=== PATIENT | female | born 1945 | race Hispanic/Latino ===

== ENCOUNTER 2016-08-06 10:56 | Emergency (ER) | payer MEDICARE ==
[~2016-08-06] VITALS: Ht 160 cm; Wt 78.4 kg
[2016-08-06 10:58] VITALS: BP 157/87; PULSE 77; RESP 18; O2SAT 98
[2016-08-06] MEDS ORDERED: 0.9% Sodium Chloride 1,000 ML IV ONE (11:19)
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
[2016-08-06] MEDS ORDERED: Acetaminophen IV 1,000 MG in IV Premix 1 EACH IV ONE (11:35)
[2016-08-06] MEDS: Ondansetron 2 mg/mL 2 mL Inj IVPUSH PRN ×2 (11:38→13:49)
[2016-08-06 11:49] LABS: BASOPHILS % (AUTO) 0.2 % (0-3); EOSINOPHILS % (AUTO) 0.3 % (0-5); MONOCYTES % (AUTO) 3.6 % (4-12); Mean Corpuscular Hemoglobin 28.7 pg (27.0-35.0); NEUTROPHILS % (AUTO) 84.7 % (40-74); Platelet Count 279 bil/L (150-400)
[2016-08-06] MEDS ORDERED: CHOL10008 PO (11:49)
[2016-08-06] MEDS ORDERED: ASPI-973 PO (11:49)
[2016-08-06] MEDS ORDERED: IBUP400T22 PO (11:49)
[2016-08-06] MEDS ORDERED: HYDR25TA4 PO (11:49)
[2016-08-06] MEDS ORDERED: LISI40TA PO (11:49)
[2016-08-06] MEDS ORDERED: SIMV20TA4 PO (11:49)
[2016-08-06 11:50] VITALS: PULSE 77; RESP 16; O2SAT 97
[2016-08-06 12:19] LABS: APPEARANCE,URINE CLEAR (CLEAR,HAZY); COLOR,URINE STRAW (YELLOW); OCCULT BLOOD,URINE MODERATE (NEGATIVE); PH,URINE 5.5 (5.0-8.0); UROBILINOGEN,URINE NORMAL (NORMAL)
[2016-08-06 13:31] VITALS: BP 137/66; PULSE 75; RESP 16; O2SAT 97
--- NOTE | 2016-08-06 13:40 | DRSVH ---
PROCEDURE: CT ABDOMEN AND PELVIS WITH CONTRAST ([id number]) INDICATIONS: abd pain TECHNIQUE: After the administration of intravenous contrast, 5 mm thick sections acquired from the diaphragm to the symphysis. 5 mm coronal and sagittal reformats were acquired. For radiation dose reduction, the following was used: automated exposure control, adjustment of mA and/or kV according to patient siz e. COMPARISON: None. FINDINGS: Image quality: Excellent. ABDOMEN: Lung bases: There is mild basilar atelectasis. No pleural effusion or pneumothorax. Solid organs: The liver is diffusely hypodense suggesting hepatic steatosis. The spleen demonstrates normal size and enhancement. Gallbladder is moderately distended. No gallbladder wall thickening or pericholecystic fluid.. Biliary system is non dilated. Pancreas enhances normally. No adrenal nodu les. Kidneys demonstrate normal size and enhancement, without hydronephrosis. There is a right lowe r pole low-density renal cyst. Peritoneum and bowel: Bowel loops demonstrate normal wall thickness and caliber. The appendix is th in walled and gas filled. There are scattered sigmoid diverticula. No evidence for diverticulitis. No free fluid or air. Nodes and vessels: No retroperitoneal or mesenteric adenopathy by size criteria. Aorta and inferior vena cava are normal in size. There are scattered atheromatous calcifications throughout the aorta a nd iliac arteries bilaterally. Miscellaneous: No ventral hernias. PELVIS: Genitourinary: Bladder wall thickness is normal. Miscellaneous: No inguinal hernias or adenopathy. Bones: No suspicious bony lesions. There is grade II L5 on S1 anterolisthesis. There are bilateral L5-S1 pars interarticularis defects. No vertebral body compression fractures. IMPRESSION: 1. No acute intra-abdominal findings. Normal appendix. 2. Diverticulosis. No acute diverticulitis. 3. Moderate gallbladder distention. There are no findings to suggest acute cholecystitis such as skel etal thickening or pericholecystic fluid. However, correlation with LFTs is recommended. 4. Hepatic steatosis. 5. Spondylolisthesis and spondylolysis at L5-S1. Dictated by: January Machado M.D. on 08/06/2016 at 13:27 Approved by: January Machado M.D. on 08/06/2016 at 13:38
[2016-08-06] MEDS ORDERED: ONDA4TAB9 PO (14:01)
[2016-08-06 14:47] VITALS: BP 137/66; PULSE 75; RESP 16; O2SAT 97
== END 2016-08-06 14:48 | disposition home or self-care (01) ==
LOC: SED 10:56
DX: R10.13 Epigastric pain (principal); Z79.82 Long term (current) use of aspirin
CPT/HCPCS: 36415; 74177; 80053; 81000; 83690; 85025; 87077; 87086; 87088; 87186; 96361; 96374; 96375; 96376; 99285; J0131; J2405; J7030; Q9967